=== PATIENT | male | born 1995 | race Caucasian/White ===

== ENCOUNTER 2024-11-28 18:10 | Emergency (ER) | payer BC, SELFPAY ==
[2024-11-28 18:17] VITALS: BP 133/85
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
[2024-11-28 20:49] VITALS: BP 140/81
== END 2024-11-28 20:51 | disposition home or self-care (01) ==
LOC: EMR 18:10
PROVIDERS: EMERGENCY PHYSICIAN Emergency Medicine; FAMILY PHYSICIAN Family Medicine
DX: S00.83XA Contusion of other part of head, initial encounter (principal); Y04.0XXA Assault by unarmed brawl or fight, initial encounter; Y92.815 Train as the place of occurrence of the external cause
CPT/HCPCS: 99284; 70450

== ENCOUNTER 2025-05-08 19:41 | Emergency (ER) | payer BC, MEDICAID, SELFPAY ==
[2025-05-08 19:45] VITALS: BP 130/85
[2025-05-08 20:03] LABS: Hematocrit 43.5 % (39.0-52.0); Hemoglobin 14.3 g/dL (13.0-18.0); Mean Corp Hgb Conc. 32.9 g/dL (33.0-37.0); Mean Corpuscular Volume 90.8 fL (80.0-94.0); Nucleated Red Blood Cells % 0 % (-); Platelet Count 233 10^3/uL (130-400); Red Cell Dist. Width 12.8 % (11.5-14.5)
[2025-05-08 20:23] LABS: Troponin I < 0.012 ng/ml
[2025-05-08 20:25] LABS: ALT (SGPT) 22 U/L (0-50); AST (SGOT) 21 U/L (17-59); Albumin 4.7 g/dl (3.5-5.0); Alkaline Phosphatase 72 U/L (38-126); Blood Urea Nitrogen 13 mg/dl (9-20); Calcium 9.2 mg/dl (8.4-10.2); Carbon Dioxide 28 mmol/L (22-30); Chloride 106 mmol/L (98-107); Glucose 71 mg/dl (70-99); Potassium 4.2 mmol/L (3.5-5.1); Sodium 141 mmol/L (135-145); Total Protein 7.3 g/dl (6.3-8.2); eGFR > 60.00
[2025-05-08 21:35] VITALS: BP 107/94
[2025-05-08 21:45] VITALS: BMI 32.0
[2025-05-08 22:00] VITALS: BP 130/85
[2025-05-08 23:00] VITALS: BP 134/75
--- NOTE | 2025-05-08 23:04 | ED.GENMED ---
History of Present Illness
General
Chief Complaint: Chest Pain
Source: patient
Exam Limitations: none
Time Seen by Provider: 05/08/25 23:04
Nursing documentation reviewed up to this point in time: agreed with
History of Present Illness
History of Present Illness:
29-year-old male no past medical history presents to the ER today with concerns of intermittent chest pain occurring over the past 2 weeks. The chest pain occurs almost daily lasting most of the day, primarily located in the central chest region
associated with sensation of pressure. The patient denies feeling chest pain during this evaluation. He also reports concurrent headaches that occur most daily are associated with intermittent dizziness primarily when he is at work and usually
subsides at home. He does not have a headache or lightheadedness currently. 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 He reports the chest pain and headaches
also subside with melatonin use at night. Patient does find relief with ibuprofen. The chest pain does not accompany typical symptoms of heartburn. He does have a family history of coronary artery disease in his paternal grandfather and he has
had cousins with heart defects. He because of his family history, he was evaluated last year by vehicle technician at [facility] where an echocardiogram and stress testing were performed as well as a loop monitor which were unremarkable. Patient
denies any recent syncopal episodes. Patient denies shortness of breath. Patient denies any long distance travel. Patient denies any redness or swelling in his legs. Patient denies any abdominal pain, nausea, vomiting, fevers or chills, upper
respiratory symptoms cough/sore throat.
Past History
Past History
ED Past Medical History: Psychiatric (Anxiety)
ED Past Surgical History: Other (Hernia repair)
Social History
Tobacco: Non-smoker
Alcohol: None
Drug: None
Living: with family
Employment: Employed
Review of Systems
Review of Systems
All Other Systems: ROS reviewed and negative except as documented in HPI and ROS
Phy Exam
Physical Exam
Physical Exam:
General: Patient is well appearing and in no acute distress; non-toxic
Skin: Warm and dry, no rashes or lesions
Head: Normocephalic, atraumatic
Eyes: Sclera non-icteric. EOMs intact.
Cardiac: Regular rate and rhythm, no murmurs no tenderness to palpation of the external chest wall
Peripheral Vascular: No lower extremity swelling or edema
Pulm: Normal respiratory effort, no wheezes, rhonchi
Abdomen: No abdominal tenderness to palpation
Neuro: CN II-XII intact, no focal neurologic deficits.
Psychiatric: Appropriate mood and affect.
Scores
Heart Score for Chest Pain Patients
STEMI patient?: No
History: Slightly or Non-Suspicious
ECG: Nonspecific Repolarization
Age: </= 45 years
Risk Factors: No Risk Factors
Troponin: </= Normal Limit
Heart Score for Chest Pain Patients: 1
Heart Score Risk: 2.5% MACE over next 6 weeks
PERC Rule Criteria
Age <50 years: Yes
HR <100 bpm: Yes
Room air oxygen sat >94%: Yes
History of DVT or PE: No
Recent trauma or surgery: No
Hemoptysis: No
Exogenous estrogen: No
Clinical signs suggestive of DVT: No
: No
Considered low risk for PE: Yes
PERC Score: 0
PE can be excluded by PERC: Yes
Course
Orders/Labs/Results
Orders:
Orders
05/08/25 19:41
Electrocardiogram (*1) Urgent
Reason for Study: Chest Pain
EKG- Treatment ONCE
05/08/25 19:53
Complete Blood Count/With Diff Urgent
Comprehensive Metabolic Panel Urgent
Troponin I Urgent
05/08/25 23:23
Electrocardiogram (*1) Urgent
Reason for Study: Chest Pain
CT Head W/o Iv Contrast Urgent
Comment:
Reason For Exam: headache, dizziness
EKG- Treatment ONCE
CR Chest - 2 Views Urgent
Comment:
Reason For Exam: chest pain
05/08/25 23:50
Troponin I Urgent
05/09/25 00:10
EKG [Electrocardiogram (*1)] Urgent
Reason for Study: Chest Pain
EKG- Treatment ONCE
Abnormal Lab Results
05/08/25
19:53
MCHC 32.9 L g/dL
(33.0-37.0)
MPV 10.9 H fL
(7.4-10.4)
Absolute Monos (auto) 0.9 H 10^3/uL
(0.1-0.6)
Monocytes % 10.7 H %
(1.7-9.3)
05/08/25 19:53
05/08/25 19:53
Vital Signs
Initial and Last Documented VS:
Initial Vital Signs
Temp Resp BP Pulse Ox
98.2 F 20 130/85 98
05/08/25 19:45 05/08/25 19:45 05/08/25 19:45 05/08/25 19:45
Last Documented Vital Signs
Temp Pulse Resp BP Pulse Ox
98.2 F 59 15 123/79 96
05/08/25 19:45 05/09/25 00:45 05/09/25 00:45 05/09/25 00:00 05/09/25 00:45
MDM/Problems Addressed
Differential Diagnosis Includes:
ddx include ACS, costochondritis, GERD, chest wall strain, tension headache, dysrhythmia
MDM/Problems Addressed:
29-year-old male no past medical history presents to the ER today with concerns of intermittent chest pain occurring over the past 2 weeks. The chest pain occurs almost daily lasting most of the day, primarily located in the central chest region
associated with sensation of pressure. He also has been complaining of intermittent dizziness and lightheadedness. Currently, none of these symptoms are present. On physical exam, he is well appearing, in no acute distress, currently asymptomatic.
ECG showed diffuse ST elevation likely benign early repolarization. Reviewed ecg's with ED attending. Patient went for CXR with showed no acute disease no pneumothorax no widened mediastinum. Suspect pain musculoskeletal in nature. Considering
patient's daily headache with intermittent dizziness, he was sent to head CT which showed no acute findings. Suspect tension headache. In terms of intermittent lightheadedness, patient may need to be evaluated by his former vehicle technician again for
further holter monitoring. Patient stable for discharge.
Chronic conditions affecting care:
n/a
*Pulse Oximetry
SaO2: 97
Oxygen Mode of Delivery: Room air
Patient hypoxic: no
*Critical Care Note
Total Time (30-74mins, 75-104mins- exclusive of procedures): Not Applicable
ED Attending Note
-
Portions of this chart may have been created with voice recognition software.� Occasional wrong word or��sound alike� substitutions may have occurred due to the inherent limitations of voice recognition software.
Discharge Plan
Departure
Patient Disposition: Home (Routine Discharge)
Date of Disposition: 05/09/25
Time of Disposition: 00:45
Patient with high blood pressure during this ER visit?: Yes
Condition: Good
Discharge Problem:
Chest pain, Light-headedness
Instructions: Chest pain (DC), Dizziness in adults - ED (DC), BLOOD PRESSURE
Referrals:
Luis Burns DO [Family Provider, Family Practice]
Activity Restrictions/Additional Instructions:
Please follow-up with your [facility] vehicle technician, please call for a follow-up appointment.
PLEASE RETURN TO THE ER SHOULD YOU DEVELOP ANY ACUTE WORSENING OF YOUR SYMPTOMS SHORTNESS OF BREATH, FAINTING SPELLS, VISUAL LOSS, BLURRY VISION, OR ANY OTHER SIGNS OR SYMPTOMS WORRISOME TO YOU.
Interventions
Interventions:
*Risk Screen - Suicide Last Done: 05/08/25 19:48
*General Assessment Last Done: 05/08/25 21:46
*Neglect/Abuse Screening Last Done: 05/08/25 19:48
*ED- Fall Risk Assessment Last Done: 05/08/25 21:46
*ED COVID-19 Vaccine History Last Done: 05/08/25 21:46
*Nursing Disposition Last Done: 05/09/25 00:50
ED- Cardiac Assessment Last Done: 05/08/25 21:46
Discharge Date and Time
Discharge Date/Time: 05/09/25 00:51
Print Language: [email or web address]
[2025-05-08 23:52] VITALS: BP 119/61
[2025-05-09] VITALS: BP 123/79
[2025-05-09 00:27] LABS: Troponin I < 0.012 ng/ml
== END 2025-05-09 00:51 | disposition home or self-care (01) ==
LOC: EMR 19:41
PROVIDERS: Emergency Medicine; Physician Assistant; EMERGENCY PHYSICIAN Student in an Organized Health Care Education/Training Program; FAMILY PHYSICIAN Family Medicine
DX: R07.9 Chest pain, unspecified (principal); R42 Dizziness and giddiness; R03.0 Elevated blood-pressure reading, without diagnosis of hypertension; F41.9 Anxiety disorder, unspecified; Z82.49 Family history of ischemic heart disease and other diseases of the circulatory system
CPT/HCPCS: 99284; 70450; 71046; 80053; 84484; 85025; 93005